=== PATIENT | male | born 1960 | race Caucasian/White ===

== ENCOUNTER 2021-10-11 13:43 | Inpatient (IN) | payer MEDICAID, OTHER ==
[~2021-10-11] VITALS: Ht 177.8 cm; Wt 76.2 kg
[2021-10-11 15:25] LABS: BASOPHILS % (AUTO) 0.6 % (0.0-2.0); HEMOGLOBIN 13.9 g/dL (13.5-17.5); LYMPHOCYTES # (AUTO) 1.1 K/uL (1.0-4.8); LYMPHOCYTES % (AUTO) 22.3 % (22.0-44.0); MEAN CORPUSCULAR HEMOGLOBIN 30.3 pg (26.0-34.0); MEAN CORPUSCULAR VOLUME 89 fL (80-100); MONOCYTES # (AUTO) 0.4 K/uL (0.1-1.0); MONOCYTES % (AUTO) 7.4 % (2.0-9.0); NEUTROPHILS # (AUTO) 3.3 K/uL (1.8-7.7); NEUTROPHILS % (AUTO) 68.7 % (40.0-70.0); PLATELET COUNT (AUTO) 213 K/uL (150-450); RED BLOOD CELL COUNT(AUTO) 4.61 MIL/uL (4.50-5.90); RED CELL DISTRIBUTION WIDTH 14.2 % (11.5-14.5)
[2021-10-11] MEDS ORDERED: ZOLPIDEM TARTRATE 10 MG TABLET PO PRN (15:30)
[2021-10-11] MEDS ORDERED: OLANZapine 5 MG RAPDIS TABLET PO PRN (15:30)
[2021-10-11] MEDS ORDERED: LORazepam 2 MG TABLET PO PRN (15:30)
[2021-10-11 15:38] LABS: ANION GAP 4 mmol/L (8-16); CALCIUM, TOTAL 8.4 mg/dL (8.8-10.5); CARBON DIOXIDE 28 mmol/L (22-29); CHLORIDE 105 mmol/L (98-107); CREATININE 1.13 mg/dL (0.60-1.30); GLOMERULAR FILTR. RATE CALC > 60 mL/min (>60); GLUCOSE,RANDOM 104 mg/dL (70-110); POTASSIUM 3.7 mmol/L (3.5-5.1); SODIUM SERUM 137 mmol/L (136-145); UREA NITROGEN, BLOOD 22 mg/dL (7-18)
[2021-10-11 15:42] LABS: ALANINE AMINOTRANSFERASE 57 U/L (12-78); ALBUMIN 3.7 g/dL (3.4-5.0); ALKALINE PHOSPHATASE 87 U/L (46-116); ASPARTATE AMINOTRANSFERASE 33 U/L (15-37); BILIRUBIN,TOTAL 0.4 mg/dL (0.1-1.0); TOTAL PROTEIN, SERUM 6.8 g/dL (6.4-8.2)
[2021-10-11 15:56] LABS: COVID AG,FIA SOURCE NASOPHARYNGEAL
[2021-10-11 20:30] VITALS: BP 125/71
[2021-10-11] MEDS ORDERED: ACETAMINOPHEN 325 MG TABLET PO PRN (21:15)
[2021-10-11] MEDS ORDERED: LOPERAMIDE HCL 2 MG CAPSULE PO PRN (21:15)
[2021-10-11] MEDS ORDERED: GuaiFENesin/D-METHORPHAN [SUGAR-FREE] 200-20MG/10 ML SYRUP UDCUP PO PRN (21:15)
[2021-10-11] MEDS ORDERED: PALIPERIDONE PALMITATE 234 MG/1.5 ML SYRINGE IM ONE (21:15)
[2021-10-11] MEDS ORDERED: MAGNESIUM HYDROXIDE SUSPENSION 30 ML UDCUP PO PRN (21:15)
[2021-10-11] MEDS ORDERED: TUBERCULIN, PURIFIED PROTEIN DERIVATIVE 5 TU/0.1 ML SYRINGE ID ONE (21:15)
[2021-10-11] MEDS ORDERED: HydrOXYzine PAMOATE 50 MG CAPSULE PO PRN (21:15)
[2021-10-11] MEDS ORDERED: PROMETHAZINE HCL 25 MG TABLET PO PRN (21:15)
[2021-10-11] MEDS ORDERED: MAG HYDROX/AL HYDROX/SIMETH ES 30 ML SUSPENSION UDCUP PO PRN (21:15)
[2021-10-12 07:52] LABS: HEMOGLOBIN A1C 5.2 % (3.8-5.6)
[2021-10-12 08:03] LABS: CHOL/HDL RATIO 3.4 (4.2-7.3); FREE T4 (FREE THYROXINE) 1.17 ng/dL (0.76-1.46); THYROID STIMULATING HORMONE 2.02 uIU/mL (0.36-3.74)
[2021-10-12 08:15] VITALS: BP 134/81
[2021-10-12] MEDS: OMEGA-3/DHA/EPA/FISH OIL 1,000 MG CAPSULE PO SCH (08:52)
[2021-10-12] MEDS: THIAMINE 100 MG TABLET PO SCH ×2 (08:52→17:02)
[2021-10-12] MEDS: NALTREXONE HCL 50 MG TABLET PO SCH (08:52)
[2021-10-12] MEDS: MULTIVITAMINS WITH MINERALS, THERAPEUTIC TABLET PO SCH (08:52)
[2021-10-12] MEDS: FOLIC ACID 1 MG TABLET PO SCH (08:53)
[2021-10-12] MEDS ORDERED: PALIPERIDONE PALMITATE 234 MG/1.5 ML SYRINGE IM ONE (09:00)
[2021-10-12] MEDS: OLANZapine 5 MG RAPDIS TABLET PO SCH (20:18)
[2021-10-12] MEDS: MELATONIN 5 MG TABLET PO SCH (20:18)
[2021-10-12 20:38] VITALS: BP 107/62
[2021-10-13 08:23] VITALS: BP 119/69
[2021-10-13] MEDS: OMEGA-3/DHA/EPA/FISH OIL 1,000 MG CAPSULE PO SCH (08:34)
[2021-10-13] MEDS: FOLIC ACID 1 MG TABLET PO SCH (08:34)
[2021-10-13] MEDS: THIAMINE 100 MG TABLET PO SCH ×2 (08:34→17:08)
[2021-10-13] MEDS: MULTIVITAMINS WITH MINERALS, THERAPEUTIC TABLET PO SCH (08:34)
[2021-10-13] MEDS: NALTREXONE HCL 50 MG TABLET PO SCH (08:34)
[2021-10-13] MEDS ORDERED: NALT50TA PO (14:35)
[2021-10-13] MEDS ORDERED: MELA5TAB40 PO (14:35)
[2021-10-13] MEDS ORDERED: OLAN5TAB94 PO (14:35)
[2021-10-13] MEDS ORDERED: OMEG-135 PO (14:35)
[2021-10-13 20:45] VITALS: BP 118/73
[2021-10-13] MEDS: OLANZapine 5 MG RAPDIS TABLET PO SCH (20:49)
[2021-10-13] MEDS: MELATONIN 5 MG TABLET PO SCH (20:49)
[2021-10-14 08:24] VITALS: BP 119/80
[2021-10-14] MEDS: THIAMINE 100 MG TABLET PO SCH ×2 (08:56→17:12)
[2021-10-14] MEDS: FOLIC ACID 1 MG TABLET PO SCH (08:56)
[2021-10-14] MEDS: OMEGA-3/DHA/EPA/FISH OIL 1,000 MG CAPSULE PO SCH (08:56)
[2021-10-14] MEDS: MULTIVITAMINS WITH MINERALS, THERAPEUTIC TABLET PO SCH (08:56)
[2021-10-14] MEDS: NALTREXONE HCL 50 MG TABLET PO SCH (08:56)
[2021-10-14 20:19] VITALS: BP 126/82
[2021-10-14] MEDS: OLANZapine 5 MG RAPDIS TABLET PO SCH (20:41)
[2021-10-14] MEDS: MELATONIN 5 MG TABLET PO SCH (20:41)
[2021-10-15] MEDS: NALTREXONE HCL 50 MG TABLET PO SCH (08:34)
[2021-10-15] MEDS: THIAMINE 100 MG TABLET PO SCH ×2 (08:34→16:57)
[2021-10-15] MEDS: FOLIC ACID 1 MG TABLET PO SCH (08:34)
[2021-10-15] MEDS: MULTIVITAMINS WITH MINERALS, THERAPEUTIC TABLET PO SCH (08:34)
[2021-10-15] MEDS: OMEGA-3/DHA/EPA/FISH OIL 1,000 MG CAPSULE PO SCH (08:34)
[2021-10-15 08:35] VITALS: BP 114/63
[2021-10-15] MEDS ORDERED: PALIPERIDONE PALMITATE 156 MG/ML SYRINGE IM ONE (09:00)
[2021-10-15] MEDS: LURASIDONE HCL 40 MG TABLET PO SCH (16:57)
[2021-10-15 20:26] VITALS: BP 124/78
[2021-10-16 08:32] VITALS: BP 136/79
[2021-10-16] MEDS: FOLIC ACID 1 MG TABLET PO SCH (09:00)
[2021-10-16] MEDS: OMEGA-3/DHA/EPA/FISH OIL 1,000 MG CAPSULE PO SCH (09:00)
[2021-10-16] MEDS ORDERED: PALIPERIDONE PALMITATE 156 MG/ML SYRINGE IM ONE (09:00)
[2021-10-16] MEDS: THIAMINE 100 MG TABLET PO SCH ×2 (09:00→16:35)
[2021-10-16] MEDS: MULTIVITAMINS WITH MINERALS, THERAPEUTIC TABLET PO SCH (09:00)
[2021-10-16] MEDS: LURASIDONE HCL 40 MG TABLET PO SCH (16:35)
[2021-10-16 20:32] VITALS: BP 117/68
[2021-10-17] MEDS: THIAMINE 100 MG TABLET PO SCH ×2 (08:37→16:53)
[2021-10-17] MEDS: FOLIC ACID 1 MG TABLET PO SCH (08:37)
[2021-10-17] MEDS: MULTIVITAMINS WITH MINERALS, THERAPEUTIC TABLET PO SCH (08:37)
[2021-10-17] MEDS: OMEGA-3/DHA/EPA/FISH OIL 1,000 MG CAPSULE PO SCH (08:37)
[2021-10-17 08:53] VITALS: BP 106/74
[2021-10-17] MEDS: LURASIDONE HCL 40 MG TABLET PO SCH (16:20)
[2021-10-18 04:11] VITALS: BP 112/68
[2021-10-18 08:51] VITALS: BP 125/74
[2021-10-18] MEDS: MULTIVITAMINS WITH MINERALS, THERAPEUTIC TABLET PO SCH ×2 (09:00→09:06)
[2021-10-18] MEDS: THIAMINE 100 MG TABLET PO SCH ×2 (09:00→09:06)
[2021-10-18] MEDS: OMEGA-3/DHA/EPA/FISH OIL 1,000 MG CAPSULE PO SCH ×2 (09:00→09:06)
[2021-10-18] MEDS: FOLIC ACID 1 MG TABLET PO SCH ×2 (09:00→09:06)
[2021-10-18] MEDS ORDERED: LURA40TA2 PO (12:12)
== END 2021-10-18 13:40 | disposition home or self-care (01) | DRG 750 ==
LOC: EMS 13:45 → B3A 18:16
PROVIDERS: ADMIT Psychiatry & Neurology Psychiatry; ATTEND Psychiatry & Neurology Psychiatry
DX: F25.1 Schizoaffective disorder, depressive type (principal); Z91.14 Patient's other noncompliance with medication regimen; F41.9 Anxiety disorder, unspecified; Z20.822 Contact with and (suspected) exposure to COVID-19; Z59.00 Homelessness unspecified; Z63.9 Problem related to primary support group, unspecified; Z55.9 Problems related to education and literacy, unspecified; Z65.3 Problems related to other legal circumstances; Z91.19 Patient's noncompliance with other medical treatment and regimen; Z91.83 Wandering in diseases classified elsewhere; Z79.899 Other long term (current) drug therapy
CPT/HCPCS: 80053; 80061; 83036; 84439; 84443; 85025; 86592; 99285; G0480; Q9967